=== PATIENT | female | born 1955 | race Caucasian/White ===

== ENCOUNTER 2024-12-15 19:21 | Emergency (ER) | payer OTHER ==
[~2024-12-15] VITALS: Ht 162.6 cm; Wt 57.4 kg
[2024-12-15 19:33] VITALS: TEMP 97.8
[2024-12-15 20:15] LABS: LEUKOCYTE ESTERASE ,URINE MODERATE (Neg); NITRITES, URINE NEGATIVE (Neg); OCCULT BLOOD,URINE MODERATE (Neg)
[2024-12-15 20:34] LABS: UA COLLECTION TYPE CLN CATCH MIDSTREAM
[2024-12-15 20:38] LABS: SQUAMOUS EPITHELIAL CELL,UR NONE SEEN /LPF (FEW)
--- NOTE | 2024-12-15 21:05 | Physician Documentation ---
History of Present Illness ~ Chief Complaint: Urinary Symptoms Stated Complaint: UTI Time Seen by MD: 19:49 Mode of Arrival: Ambulatory HPI The patient Is seen today with complaints of pelvic discomfort and lower abdominal discomfort and pain with associated dysuria and urinary frequency and urgency. Patient states he has not had a UTI for about five years. She states she got COVID about 10 days ago and has had some diarrhea which began the urinary tract infection. Patient has a hard has no complaints of fevers or chills in his no other concern or complaint at this time. Medication Reconciliation Allergies: Coded Allergies: Penicillins (Verified Allergy, Intermediate, HIVES, 12/15/24) Review of Systems Constitutional: Denies: chills, fever, weakness Eyes: Denies: pain, blurred vision ENT: Denies: ear pain, nose pain, throat pain, mouth pain Respiratory: Denies: cough, shortness of breath Cardiovascular: Denies: chest pain, palpitations Gastrointestinal: Denies: abdominal pain, nausea, vomiting Genitourinary: Denies: burning, dysuria Female Genitalia: Denies: vaginal discharge, pelvic pain Neurological: Denies: headache, dizziness Musculoskeletal: Denies: pain, swelling Integumentary: Denies: rash, lesions Allergic/Immunologic: Denies: hives, itching Hematologic/Lymphatic: Denies: no symptoms reported Psychiatric: Denies: depression, anxiety Physical Exam Vital Signs: Temperature: 97.8, Source: Temporal, Heart Rate: 79, Respiratory Rate: 16, BP: 175/81, Pulse Oximetry: 99, Weight: 57.400 Oxygen Flow Rate: 0 Physical Exam General: Awake and Alert, no acute distress. HEENT: Conjunctiva pink, Sclera clear, Mucus Membranes moist. Neck: Supple without masses and tenderness. Resp: Unlabored. Lungs clear to auscultation bilaterally. Heart: Regular Rate and rhythm, normal S1 and S2 without murmur, rub or gallop. Abdomen: Abdomen is soft, nondistended, mild suprapubic tenderness, no other tenderness appreciable, no masses no rebound tenderness and no guarding. Patient has no CVA tenderness on either side. Extremities: No cyanosis,clubbing or edema. Skin: Warm and Dry. Progress Results/Orders Results/Orders Vital Signs 12/15/24 12/15/24 19:33 20:29 Temp 97.8 Pulse 79 Resp 16 16 B/P (MAP) 175/81 Pulse Ox 99 O2 Flow Rate 0 Laboratory Tests Test 12/15/24 19:35 Urine Specimen Description Cln catch midstream Urine Color Yellow Urine Clarity Slightly cloudy Urine pH 6.5 Urine Specific [place] <=1.005 Urine Protein Negative Urine Glucose (UA) Negative Urine Ketones Negative Urine Occult Blood Moderate H Urine Nitrite Negative Urine Bilirubin Negative Urine Urobilinogen 0.2 Urine Leukocyte Esterase Moderate H Urine RBC 3-10 Urine WBC 10-20 H Urine Squamous Epithelial Cells None seen Urine Bacteria 2+ Urine Culture Indicated Indicated Volume Urine Centrifuged 10 ml Urine Comment Medical Decision Making Findings The patient Is seen today with complaints of pelvic discomfort and lower abdominal discomfort and pain with associated dysuria and urinary frequency and urgency. Patient states he has not had a UTI for about five years. She states she got COVID about 10 days ago and has had some diarrhea which began the urinary tract infection. Patient has a hard has no complaints of fevers or chills in his no other concern or complaint at this time. Patient was given Rocephin 1 g IM in the ED tonight as well as prescription for Keflex 500 mg one tab 3 times a day sent to patient's pharmacy to take for five days. Patient will return to ED with any worsening, concerning or changing symptoms. Follow up with primary care in 2-3 days if no better as needed sooner. Departure Disposition: HOME / SELF CARE / HOMELESS Impression: Primary Impression: Acute urinary tract infection Condition: Improved Discharge Instructions: Urinary Tract Infection, Adult Additional Instructions: Patient was given Rocephin 1 g IM in the ED tonight as well as prescription for Keflex 500 mg one tab 3 times a day sent to patient's pharmacy to take for five days. Patient will return to ED with any worsening, concerning or changing symptoms. Follow up with primary care in 2-3 days if no better as needed sooner. Referrals: NO PRIMARY CARE PROVIDER (PCP) Prescriptions Cephalexin*Monohydrate* (Keflex*) 500 Mg Capsule 1 CAP PO Q8H for 5 Days, #15 CAP Prov: LACIE LOVE 12/15/24 Signature Scribe Signature: No scribe Attestation: No scribe LACIE LOVE PAC Dec 15, 2024 21:05
[2024-12-15] MEDS ORDERED: CEPH-585 PO (21:26)
[2024-12-15] MEDS: CefTRIAXone 1000mg IM Kit (w/lidocaine diluent) IM STA (21:52)
[2024-12-15 21:55] VITALS: BP 132/77; PULSE 87; RESP 17; O2SAT 98
== END 2024-12-15 21:57 | disposition home or self-care (01) ==
LOC: ER 19:22
DX: N39.0 Urinary tract infection, site not specified (principal); Z88.0 Allergy status to penicillin
CPT/HCPCS: 81001; 87088; 96372; 99283; J0696